=== PATIENT | female | born 2005 | race Caucasian/White ===

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

== ENCOUNTER 2023-06-21 08:09 | Outpatient (CLI) | payer BC, SELFPAY ==
--- NOTE | 2023-06-21 08:15 | CRLHL7_ITS ---
For Patients: As a result of the Century Cures Act, medical imaging exams and procedure reports are released immediately into your electronic medical record. You may view this report before your referring provider. If you have questions, please contact your health care provider. RIGHT BREAST ULTRASOUND CLINICAL HISTORY: RIGHT breast palpable lump. COMPARISON: None. TECHNIQUE: Real-time ultrasound imaging of RIGHT breast with imaging documentation. FINDINGS: Targeted sonogram RIGHT breast in the area of concern at 7 o`clock 1 cm from the nipple performed. Normal dense tissue is present. No fibrocystic change or solid mass. IMPRESSION: Normal fibroglandular tissue RIGHT breast 7 o`clock 1 cm from the nipple. RECOMMENDATIONS: Clinical follow-up. Results and recommendations were discussed with the patient at the time of the exam. BI-RADS Category 1: Negative Dictated by Diallo Mar MD @ 06/21/2023 12:17:40 PM/paul DAO/Dictated by: Diallo Mar MD @ 06/21/2023 12:17:00 PM (Electronically Signed)
== END 2023-06-21 08:10 | disposition home or self-care (01) ==
PROVIDERS: PCP Physician Assistant Medical; Visit Provider Registered Nurse
DX: N63.10 Unspecified lump in the right breast, unspecified quadrant (principal)
CPT/HCPCS: 76642

== ENCOUNTER 2024-02-19 11:03 | Emergency (ER) | payer BC, SELFPAY ==
[2024-02-19 11:06] VITALS: BP 122/76; PULSE 105; RESP 18; TEMP 36.9; O2SAT 99; BMI 18.2
--- NOTE | 2024-02-19 11:24 | ED_ITS ---
HPI - General Adult General Time Seen by Provider: :24 Date Seen: 02/19/24 Chief complaint: Ear/Nose/Throat Problem Stated complaint: post op tonsillectomy,nausea dehydration Time Seen by Provider: 02/19/24 11:08 Source: patient, family and RN notes reviewed Mode of arrival: ambulatory Limitations: no limitations History of Present Illness HPI narrative: This 18-year-old female had tonsillectomy this last Monday, is coming in with nausea and vomiting. She last took pain medicines about 530 this morning. She really can not eat or drink due to the nausea, did have an emesis about 130 a.m. today. She really is not having any significant sore throat or difficulty swallowing. No fevers or chills, no cough, no abdominal pain. He is using oxycodone and Tylenol for pain management. We did discuss that narcotics can be nauseating. She does not have Zofran at home. Had surgery in [place]. Related Data Home Medications ?Medication ?Instructions ?Recorded ?Confirmed levonorgestrel 21 mcg/24 hr (up to 1 device intrauterine ONCE 04/21/22 02/06/24 8 years) 52 mg intrauterine device (Mirena) cetirizine 10 mg tablet 10 mg PO DAILY 01/25/24 02/06/24 fluticasone propionate 50 spray intranasal 01/25/24 02/06/24 mcg/actuation nasal spray,suspension oxycodone 5 mg tablet 5 - 10 mg PO Q4H PRN pain 02/19/24 02/19/24 Previous Rx's ?Medication ?Instructions ?Recorded ondansetron 4 mg disintegrating 4 mg PO Q6H PRN nausea and 02/19/24 tablet vomiting #20 tabs Allergies Allergy/AdvReac Type Severity Reaction Status Date / Time mold Allergy Mild Verified 02/06/24 08:11 cats Allergy Mild allergy Uncoded 02/06/24 08:11 tested dogs Allergy Mild positive Uncoded 02/06/24 08:11 allergy test trees oak and maple Allergy Mild positive Uncoded 02/06/24 08:11 allergy test Review of Systems Status of ROS: Reports: 6 or more systems reviewed and unremarkable except as noted in History and below [facility] Medical History (Updated 02/19/24 @ 12:22 by Marleen Lopez MD) Left low back pain ?M54.50 - Low back pain, unspecified (ICD-10) Otitis media ?H66.90 - Otitis media, unspecified, unspecified ear (ICD-10) Surgical History (Updated 02/19/24 @ 11:33 by Marleen Lopez MD) History of tonsillectomy and adenoidectomy (~02/2024) ?Z90.89 - Acquired absence of other organs (ICD-10) History of wisdom tooth extraction ?K08.409 - Partial loss of teeth, unspecified cause, unspecified class (ICD- 10) Social History Smoking Status: Never smoker Do you use any of these nicotine containing products: None How often do you have a drink containing alcohol: never How often do you have six or more drinks on one occasion: Never AUDIT-C Alcohol total score: 0 Non-prescribed substance use: denies use Little interest or pleasure in doing things: several days Feeling down, depressed, or hopeless: not at all service: No Exam Const: Vital Signs, click to edit/add: Vital Signs - 24 hr 02/19/24 11:06 02/19/24 11:50 02/19/24 12:00 Temperature 98.5 F Pulse Rate 92 92 Pulse Rate [Right] 105 H Respiratory Rate 18 Blood Pressure [Ri ght Upper Arm] 122/76 Pulse Oximetry 99 98 98 Oxygen Delivery Me thod Room Air 02/19/24 12:15 02/19/24 12:30 Temperature Pulse Rate 96 99 Pulse Rate [Right] Respiratory Rate Blood Pressure [Ri ght Upper Arm] Pulse Oximetry 99 100 Oxygen Delivery Me thod Patient is alert, interactive, no apparent distress. Ambulatory into the ED of her own accord. Check she looks quite well, face atraumatic, sclera clear, conjugate gaze. She has a bit of a muffled voice but is managing secretions. No trismus, able to open mouth. She has the white eschars along the tonsillar sidewalls, still good oral airway. Mucosa slightly dry. Neck is supple, no adenopathy. Lungs clear anteriorly, CV regular rate and rhythm, no murmur. Abdomen is flat, soft, nontender. Documenting provider has reviewed patient's vital signs: yes Course Course ED Course: This patient is likely suffering from nausea which presumably is narcotic associated. Will get it baseline labs with CBC, basic metabolic panel and lactate to assess for level of possible dehydration. Will give her L of normal saline and 4 mg IV Zofran. Pain is really not an issue for her, it is possible that she could maybe just get by with Tylenol and maybe minimal dosing of oxycodone. Will certainly send her with some Zofran to help with nausea. Do not feel at this time that she needs any further imaging or workup, does not seem to be any complication of infection post tonsillectomy. Reevaluation(s) Time of Reevaluation #1: 12:16 Reevaluation #1: Patient has about half of her IV fluids in, Zofran has resolved her nausea. We will make sure we send in Zofran for her. We reviewed that the white blood count hemoglobin are good. Awaiting basic metabolic panel. Plan at this time will be to discharge to home pending any unforeseen complications that may arise. Certainly want to ensure that her basic metabolic panel is stable. We discussed Tylenol as her base for pain, ibuprofen 2nd and then oxycodone 3rd with consideration of a half tablet and concomitant Zofran. Time of Reevaluation #2: 13:23 Reevaluation #2: Patient has urinated, did not require 2 L of fluids. Will discharge to home at this time as she is stable. Vital Signs Vital signs: Initial Vital Signs Temperature 98.5 F 02/19/24 11:06 Temperature Source Temporal Artery Scan 02/19/24 11:06 Pulse Rate 105 H 02/19/24 11:06 Pulse Rhythm Regular 02/19/24 11:06 Respiratory Rate 18 02/19/24 11:06 Blood Pressure 122/76 02/19/24 11:06 Blood Pressure Mean 91 02/19/24 11:06 Blood Pressure Position Sitting 02/19/24 11:06 Pulse Oximetry 99 02/19/24 11:06 Oxygen Delivery Method Room Air 02/19/24 11:06 Vital Signs Temperature 98.5 F 02/19/24 11:06 Pulse Rate 105 H 02/19/24 11:06 Respiratory Rate 18 02/19/24 11:06 Blood Pressure 122/76 02/19/24 11:06 Pulse Oximetry 99 02/19/24 11:06 Oxygen Delivery Method Room Air 02/19/24 11:06 Temperature 98.5 F 02/19/24 11:06 Pulse Rate 99 02/19/24 12:30 Respiratory Rate 18 02/19/24 11:06 Blood Pressure 122/76 02/19/24 11:06 Pulse Oximetry 100 02/19/24 12:30 Oxygen Delivery Method Room Air 02/19/24 11:06 Medications Administered Medications: Discontinued Medications Generic Name Dose Route Start Last Admin Trade Name Irene PRN Reason Stop Dose Admin Sodium Chloride 1,000 mls @ 1,000 mls/hr 02/19/24 11:29 02/19/24 12:51 0.9 % Sodium Chloride 1000 Ml IV 02/19/24 12:28 Infused .Q1H SWATHI Infusion Ondansetron HCl 4 mg 02/19/24 11:29 02/19/24 11:47 Ondansetron 2 Mg/Ml Inj IVP 02/19/24 11:30 4 mg ONCE ONE Administration Medical Decision Making Lab Data Lab results reviewed: Yes I reviewed the patient's lab results Labs: Lab Results 02/19/24 Range/Units 11:45 WBC 9.14 (4.50-11.00) K/uL RBC 4.43 (4.00-5.20) m/uL Hgb 13.2 (12.0-16.0) gm/dL Hct 39.5 (33.0-51.0) % MCV 89 (80-100) fL MCH 30 (26-34) pg MCHC 33 (32-36) gm/dL RDW Coeff of Baljit 11.4 L (11.5-15.5) % Plt Count 216 (140-440) K/uL Neut % (Auto) 82.9 H (42.0-72.0) % Lymph % (Auto) 12.1 L (20-44) % [place] % (Auto) 4.5 (0.0-11.0) % Eos % (Auto) 0.2 (0.0-7.0) % Baso % (Auto) 0.1 (0.0-3.0) % Neut # (Auto) 7.60 H (1.7-7.0) K/uL Lymph # (Auto) 1.10 (0.90-2.90) K/uL [place] # (Auto) 0.40 (0.00-0.90) K/UL Eos # (Auto) 0.02 (0.00-0.50) K/uL Baso # (Auto) 0.01 (0.00-0.30) K/uL Abs Immat Gran (auto) 0.02 (0.00-0.30) K/uL Imm/Tot Granulo (auto) 0.2 % Sodium 136 (135-149) mmol/L Potassium 4.3 (3.6-5.1) mmol/L Chloride 106 (96-114) mmol/L Carbon Dioxide 16 L (20-32) mmol/L Anion Gap 14 (7-15) mEq/L BUN 13 (5-24) mg/dL Creatinine 0.6 (0.5-1.5) mg/dL Estimated Creat Clear 128.52 Estimated GFR 132 ml/min Glucose 73 (60-115) mg/dL Lactate 1.0 (0.5-1.9) mmol/L Calcium 9.2 (8.4-10.6) mg/dL Discharge Plan Discharge Clinical Impression: Postoperative nausea and vomiting Patient Disposition: Home, Self-Care Condition: Stable Instructions: Acute Nausea and Vomiting (ED) Additional Instructions: Use Tylenol baseline for pain, 1000 mg 3 times a day. Can use ibuprofen per bottle directions for the next level of pain relief. Use oxycodone for severe pain or pain that is not relieved by the Tylenol and ibuprofen, consider half seen the dose of oxycodone to minimize side effects. It is certainly possible that the nausea and vomiting could be stemming from narcotic side effects. I have sent in Zofran, use Zofran with use of oxycodone to help prevent any possible narcotic associated nausea and vomiting. Drink small frequent sips of fluids, this will help not overload your stomach and cause further nausea and vomiting. Your appetite for solids will improve as you feel better. It is imperative that you drink fluids to prevent dehydration but your body can actually go without solid intake for short periods of time without any complications. Continue to follow the postoperative recommendations from your surgeon. Prescriptions: New ondansetron 4 mg tablet,disintegrating 4 mg PO Q6H PRN (Reason: nausea and vomiting) Qty: 20 0RF No Action Mirena 20 mcg/24 hours (7 yrs) 52 mg intrauterine device 1 device intrauterine ONCE Rx Instructions: as a single dose fluticasone propionate 50 mcg/actuation spray,suspension intranasal cetirizine 10 mg tablet 10 mg PO DAILY oxycodone 5 mg tablet 5 - 10 mg PO Q4H PRN (Reason: pain) Follow Up/Referrals: Cookie Dill PA-C [Primary Care Provider] - Stand Alone Forms: [facility] Info Instructions
[2024-02-19] MEDS: ONDANSETRON 2 MG/ML inj 4 MG IVP (11:47)
[2024-02-19] MEDS: 0.9 % SODIUM CHLORIDE 1000 ml 1,000 ML IV (11:48)
[2024-02-19 11:50] VITALS: PULSE 92; O2SAT 98
[2024-02-19 11:52] LABS: Basophils Absolute Auto 0.01 K/uL (0.00-0.30); Basophils Percent Auto 0.1 % (0.0-3.0); Eosinophils Absolute Auto 0.02 K/uL (0.00-0.50); Eosinophils Percent Auto 0.2 % (0.0-7.0); Hematocrit 39.5 % (33.0-51.0); Hemoglobin* 13.2 gm/dL (12.0-16.0); Immature Granulocytes Abs Auto 0.02 K/uL (0.00-0.30); Immature Granulocytes Pct Auto 0.2 %; Lymphocytes Percent Auto 12.1 % (20-44); Mean Corpuscular HGB Conc 33 gm/dL (32-36); Mean Corpuscular Hemoglobin 30 pg (26-34); Mean Corpuscular Volume 89 fL (80-100); Monocytes Percent Auto 4.5 % (0.0-11.0); Neutrophils Percent Auto 82.9 % (42.0-72.0); Platelet Count* 216 K/uL (140-440); RDW Coefficient of Variation % 11.4 % (11.5-15.5); Red Blood Count 4.43 m/uL (4.00-5.20); Slide Review Reflex No; White Blood Count* 9.14 K/uL (4.50-11.00)
[2024-02-19 12:00] VITALS: PULSE 92; O2SAT 98
[2024-02-19 12:05] LABS: Chloride* 106 mmol/L (96-114); Potassium* 4.3 mmol/L (3.6-5.1); Sodium* 136 mmol/L (135-149)
[2024-02-19 12:08] LABS: Anion Gap 14 mEq/L (7-15); Carbon Dioxide* 16 mmol/L (20-32); Creatinine* 0.6 mg/dL (0.5-1.5); Est. Creatinine Clearance* 128.52; Estimated Glomerular Filt Rate 132 ml/min
[2024-02-19 12:09] LABS: Blood Urea Nitrogen* 13 mg/dL (5-24); Calcium* 9.2 mg/dL (8.4-10.6); Glucose* 73 mg/dL (60-115)
[2024-02-19 12:15] VITALS: PULSE 96; O2SAT 99
[2024-02-19 12:30] VITALS: PULSE 99; O2SAT 100
[2024-02-19 12:45] VITALS: PULSE 105; O2SAT 99
== END 2024-02-19 13:40 | disposition home or self-care (01) ==
PROVIDERS: Emergency Provider Family Medicine; PCP Physician Assistant Medical
DX: R11.2 Nausea with vomiting, unspecified (principal)
CPT/HCPCS: 36415; 80048; 83605; 85025; 96361; 96374; 99283; 99284; J2405; J7030

== ENCOUNTER 2024-05-16 10:36 | Outpatient (CLI) | payer BC, SELFPAY | END 2024-05-16 10:37 | disposition home or self-care (01) | PROVIDERS: PCP Physician Assistant Medical; Visit Provider Registered Nurse | DX: Z13.220 Encounter for screening for lipoid disorders (principal); Z83.42 Family history of familial hypercholesterolemia | CPT/HCPCS: 80061 ==

== ENCOUNTER 2024-05-28 10:14 | Outpatient (CLI) | payer BC, SELFPAY ==
--- NOTE | 2024-05-28 10:15 | CRLHL7_ITS ---
For Patients: As a result of the Century Cures Act, medical imaging exams and procedure reports are released immediately into your electronic medical record. You may view this report before your referring provider. If you have questions, please contact your health care provider. INDICATION: COMPARISON: none TECHNIQUE: 2D graham scale and color Doppler images were acquired of the pelvis using a transabdominal and transvaginal approach. FINDINGS: Sonographic images demonstrate a normal size and smooth outer contour of the uterus. Uterus measures 7.2 cm in length by 3.8 cm in AP diameter by 4.6 cm in transverse dimension. The myometrium has a normal uniform echotexture. The endometrial lining appears normal and measures 2.6 mm in composite thickness. IUD is present in good position within the endometrial canal. The right ovary measures 2.7 x 1.6 x 1.3 cm in size and the left ovary measures 3.4 x 2.6 x 2.1 cm. The ovaries demonstrate normal arterial and venous blood flow on color Doppler analysis. Mild pelvic free fluid noted. Hyperechoic structure within the left ovary measuring 2.2 x 1.6 x 1.4 cm. IMPRESSION: Hyperechoic left ovarian cyst measuring 2.2 x 1.6 x 1.4 cm may represent a typical dermoid cyst. IUD is present in good position within the endometrial canal. Dictated by Diallo Mar MD @ 05/28/2024 1:04:22 PM (Electronically Signed)
--- NOTE | 2024-05-28 11:15 | CRLHL7_ITS ---
For Patients: As a result of the Cures Act, medical imaging exams and procedure reports are released immediately into your electronic medical record. You may view this report before your referring provider. If you have questions, please contact your health care provider. LEFT BREAST ULTRASOUND CLINICAL HISTORY: Left breast lump. COMPARISON: None. TECHNIQUE: Real-time ultrasound imaging of LEFT breast with imaging documentation. FINDINGS: Targeted sonogram LEFT breast 5 o`clock 3 cm from the nipple performed. In this location, there is a micro lobular, hypoechoic, solid mass measuring 1.7 x 1.4 x 1.6 cm. IMPRESSION: Indeterminate, micro lobular, solid nodule LEFT breast 5 o`clock 3 cm from the nipple measuring 1.7 cm. Fibroadenoma versus phyllodes. RECOMMENDATIONS: Ultrasound-guided core needle biopsy. Results and recommendations were discussed with the patient at the time of the exam. BI-RADS: 4. Suspicious. A lay language report of this examination will be provided to the patient. Dictated by Diallo Mar MD @ 05/28/2024 12:19:39 PM /sp SP/Dictated by: Diallo Mar MD @ 05/28/2024 12:19:00 PM (Electronically Signed)
== END 2024-05-28 10:15 | disposition home or self-care (01) ==
LOC: US 10:14
PROVIDERS: PCP Physician Assistant Medical; Visit Provider Registered Nurse
DX: R10.2 Pelvic and perineal pain (principal); N83.202 Unspecified ovarian cyst, left side; N63.20 Unspecified lump in the left breast, unspecified quadrant
CPT/HCPCS: 76642; 76830; 76856; 93976

== ENCOUNTER 2024-06-18 10:04 | Outpatient (CLI) | payer BC, SELFPAY ==
--- NOTE | 2024-06-18 10:15 | CRLHL7_ITS ---
For Patients: As a result of the Century Cures Act, medical imaging exams and procedure reports are released immediately into your electronic medical record. You may view this report before your referring provider. If you have questions, please contact your health care provider. ULTRASOUND-GUIDED BREAST BIOPSY CLINICAL HISTORY: Indeterminate solid mass. COMPARISON STUDIES: 05/28/2024. TECHNIQUE: Real-time ultrasound with image documentation was used for targeting the breast lesion. Core biopsy specimens were obtained using an automated gun with an 18-gauge biopsy needle. CONSENT and TIME OUT: The procedure, risks, and alternatives were explained to the patient and a consent was signed. [place] Protocol was followed including pre-procedure verification that relevant information/documentation was available, reviewed and properly matched to the patient; consent accurate and complete; and equipment and supplies available. Time Out was conducted just prior to starting procedure to verify the four required elements: patient identity, correct side/site marked (if applicable), procedure, relevant images/results properly labeled and displayed (if applicable). PROCEDURE: The patient was positioned supine on the ultrasound table. The breast was prepped with ChloraPrep. 6 cc of 1 percent lidocaine used for local anesthesia. Core samples were obtained. The specimens were placed in 10% formalin and sent to the pathology department. Pressure was held on the biopsy site until all bleeding subsided. The skin incision was closed with Steri-Strips. An ice pack was positioned over the biopsy site. Post-biopsy instructions were reviewed with the patient, and a written copy was given to her. LATERALITY: LEFT breast. LESION: Solid hypoechoic mass measuring 17 x 14 x 16 millimeters at 5 o`clock 3 cm from the nipple. SUSPICION FOR MALIGNANCY: Low, fibroadenoma or phyllodes. NUMBER OF SAMPLES: 5. IMPRESSION: Ultrasound-guided breast biopsy. When the pathology report is available, an addendum to this report will be made. ACR not applicable Dictated by Diallo Mar MD @ 06/18/2024 10:55:02 AM jj/Dictated by: Diallo Mar MD @ 06/18/2024 10:55:00 AM (Electronically Signed)
== END 2024-06-18 10:05 | disposition home or self-care (01) ==
LOC: US 10:05
PROVIDERS: PCP Physician Assistant Medical; Visit Provider Registered Nurse
DX: N63.23 Unspecified lump in the left breast, lower outer quadrant (principal); D24.2 Benign neoplasm of left breast
CPT/HCPCS: 19083; 88305; A4648; A4649

== ENCOUNTER 2024-10-15 13:08 | Outpatient (CLI) | payer BC, SELFPAY | END 2024-10-15 13:09 | disposition home or self-care (01) | LOC: NFLDREF 13:08 | PROVIDERS: PCP Physician Assistant Medical; Visit Provider Registered Nurse | DX: N92.6 Irregular menstruation, unspecified (principal) | CPT/HCPCS: 84443 ==

== ENCOUNTER 2025-03-12 11:38 | Outpatient (CLI) | payer BC, SELFPAY | END 2025-03-12 11:39 | disposition home or self-care (01) | LOC: NFLDREF 03-16 07:15 | PROVIDERS: PCP Physician Assistant Medical; Referring Provider Physician Assistant Medical; Visit Provider Registered Nurse | DX: N30.90 Cystitis, unspecified without hematuria (principal) | CPT/HCPCS: 87086 ==

== ENCOUNTER 2025-07-01 08:04 | Outpatient (CLI) | payer BC, SELFPAY ==
--- NOTE | 2025-07-01 08:15 | CRLHL7_ITS ---
For Patients: As a result of the Cures Act, medical imaging exams and procedure reports are released immediately into your electronic medical record. You may view this report before your referring provider. If you have questions, please contact your health care provider. BILATERAL BREAST ULTRASOUND CLINICAL HISTORY: BILATERAL breast lumps. COMPARISON: 06/18/2024. TECHNIQUE: Real-time ultrasound imaging of BILATERAL breasts with imaging documentation. FINDINGS: Targeted RIGHT breast ultrasound performed at 9 o`clock 1 cm from the nipple. In this location, there is a solid lobular hypoechoic mass measuring 1.1 x 0.7 x 1.3 cm at anterior depth. Targeted LEFT breast ultrasound performed. Small hypoechoic nodules are present at left breast 12 o`clock 3-4 cm from the nipple. IMPRESSION: No suspicious findings LEFT breast. Solid lobular hypoechoic nodule RIGHT breast 9 o`clock 1 cm from the nipple measures 1.1 cm. RECOMMENDATIONS: Ultrasound-guided core needle biopsy of the RIGHT breast nodule. A lay language report of this examination will be provided to the patient. BI-RADS Category 4. Suspicious. Dictated by Diallo Mar MD @ 07/01/2025 9:23:32 AM CARLOS ALBERTO/mirian DW/Dictated by: Diallo Mar MD @ 07/01/2025 9:23:00 AM (Electronically Signed)
== END 2025-07-01 08:05 | disposition home or self-care (01) ==
PROVIDERS: PCP Physician Assistant Medical; Visit Provider Registered Nurse
DX: N63.10 Unspecified lump in the right breast, unspecified quadrant (principal); N63.20 Unspecified lump in the left breast, unspecified quadrant
CPT/HCPCS: 76642

== ENCOUNTER 2025-07-25 10:01 | Outpatient (CLI) | payer BC, SELFPAY ==
--- NOTE | 2025-07-25 10:15 | CRLHL7_ITS ---
For Patients: As a result of the Century Cures Act, medical imaging exams and procedure reports are released immediately into your electronic medical record. You may view this report before your referring provider. If you have questions, please contact your health care provider. ULTRASOUND-GUIDED BREAST BIOPSY CLINICAL HISTORY: Indeterminate lesion COMPARISON STUDIES: 07/01/2025 TECHNIQUE: Real-time ultrasound with image documentation was used for targeting the breast lesion. Core biopsy specimens were obtained using an automated gun with an 18-gauge biopsy needle. CONSENT and TIME OUT: The procedure, risks, and alternatives were explained to the patient and a consent was signed. [place] Protocol was followed including pre-procedure verification that relevant information/documentation was available, reviewed and properly matched to the patient; consent accurate and complete; and equipment and supplies available. Time Out was conducted just prior to starting procedure to verify the four required elements: patient identity, correct side/site marked (if applicable), procedure, relevant images/results properly labeled and displayed (if applicable). PROCEDURE: The patient was positioned supine on the ultrasound table. The breast was prepped with ChloraPrep. 6 cc of 1 percent lidocaine used for local anesthesia. Core samples were obtained. The specimens were placed in 10% formalin and sent to the pathology department. Pressure was held on the biopsy site until all bleeding subsided. The skin incision was closed with Steri-Strips. An ice pack was positioned over the biopsy site. Post-biopsy instructions were reviewed with the patient, and a written copy was given to her. LATERALITY: Left breast LESION: Hypoechoic solid nodule measures 11 x 7 x 13 millimeters at 9 o`clock 1 cm from the nipple. SUSPICION FOR MALIGNANCY: Low NUMBER OF SAMPLES: 5 IMPRESSION: Ultrasound-guided breast biopsy. When the pathology report is available, an addendum to this report will be made. ACR not applicable Dictated by Diallo Mar MD @ 07/25/2025 3:38:03 PM (Electronically Signed)
== END 2025-07-25 10:02 | disposition home or self-care (01) ==
LOC: US 10:02
PROVIDERS: PCP Physician Assistant Medical; Visit Provider Registered Nurse
DX: N63.20 Unspecified lump in the left breast, unspecified quadrant (principal); R92.8 Other abnormal and inconclusive findings on diagnostic imaging of breast
CPT/HCPCS: 19083; A4648; A4649